=== PATIENT | female | born 1990 | race African-American/Black ===

== ENCOUNTER 2021-01-06 09:52 | Outpatient (CLI) | payer OTHER ==
--- NOTE | 2021-01-06 12:54 | MRI Report ---
PROCEDURE: Ankle LT W/O INDICATIONS: PAIN IN LEFT ANKLE TECHNIQUE: Noncontrast sagittal T1 spin echo and T2 fast spin echo with fat saturation, axial proton density fas t spin echo and T2 fast spin echo with fat saturation, coronal T1 spin echo and T2 fast spin echo wit h fat saturation through the ankle/hindfoot. COMPARISON: None. Findings: Bones: No evidence of fracture, infiltration, ischemia or contusion. MUSCLES: No evidence of muscular atrophy or edema. Anterior tibiofibular ligament: Intact. Posterior tibiofibular ligament: Intact. Calcaneofibular ligament: Intact. Talar dome: No significant abnormality. Anterior talofibular ligament: Intact. Posterior talofibular ligament: Intact. Deltoid ligament: Intact. Peroneal tendons: No evidence of tear or tenosynovitis. Tibialis posterior: No evidence of tear or tenosynovitis. Flexor digitorum: No evidence of tear or tenosynovitis. Flexor hallucis longus: No evidence of tear. Near circumferential fluid surrounds the tendon, which m ay reflect joint fluid versus tenosynovitis Sinus Tarsi: No mass or fibrosis. Achilles tendon: Intact. Joint effusion: Small tibiotalar joint effusion. Trace fluid in the retrocalcaneal bursa. Plantar fascia: No evidence of tear or inflammation. IMPRESSION: 1. Joint fluid versus tenosynovitis of the flexor hallucis longus. 2. Small tibiotalar joint effusion. 3. Trace fluid in the retrocalcaneal bursa. Reviewed by: Solomon Rush MD on 01/06/2021 12:53 PM PDT Approved by: Soloomn Rush MD on 01/06/2021 12:53 PM PDT Station ID: [id number]
== END 2021-01-06 09:53 | disposition home or self-care (01) ==
LOC: DI 09:52
PROVIDERS: ATTEND Orthopaedic Surgery
DX: M25.472 Effusion, left ankle (principal); M25.572 Pain in left ankle and joints of left foot

== ENCOUNTER 2021-04-23 08:49 | Outpatient (CLI) | payer OTHER ==
[2021-04-23] MEDS ORDERED: GADOBUTROL 7.5 MMOL/7.5 ML VIAL ONE (09:40)
--- NOTE | 2021-04-23 11:06 | MRI Report ---
PROCEDURE: Brain W/WO INDICATIONS: VERTIGO, MIGRAINES CONTRAST: IV CONTRAST: Gadavist ml: 7.5 TECHNIQUE: Noncontrast axial T1 spin echo, axial T2 fast spin echo, sagittal and axial FLAIR, coronal T2 fast sp in echo, axial gradient echo, axial diffusion and ADC through the brain. After the administration of contrast, axial and coronal T1 spin echo with fat saturation through the brain. COMPARISON: None. FINDINGS: Image quality: Excellent. CSF spaces: Basal cisterns are patent. No extra-axial fluid collections. Ventricles are normal in size and shape. Brain: No midline shift. No intracranial bleeds or masses. No abnormal intracranial enhancement. There is cerebral volume loss for age. There is periventricular white matter chronic small vessel is chemic change. The brainstem appears normal. Diffusion-weighted images demonstrate no acute ischemi c insults. No chronic ischemic insults. Normal intravascular flow voids are present. In this patient with this given history, scrutiny is given to the cerebellopontine angle cisterns and to the internal auditory canals. To the limits of this standard protocol study, no masses or abnorma l enhancement can be seen within these regions. Skull and face: Calvarial marrow is normal in signal. Orbits appear normal. Sinuses: Small maxillary sinus mucous retention cysts can be seen. Sinuses and mastoids otherwise ap pear clear. IMPRESSION: No imaging explanation is found for the patient's presenting symptoms. No masses or abnormal enhancement can be seen. Reviewed by: Pascual Gonzales MD on 04/23/2021 10:04 AM [facility] Approved by: Pascual Gonzales MD on 04/23/2021 10:04 AM [facility] Station ID: [id number]
[2021-04-28] MEDS: GADOBUTROL 7.5 MMOL/7.5 ML VIAL IVP ONE (09:34)
== END 2021-04-23 08:50 | disposition home or self-care (01) ==
LOC: DI 08:49
PROVIDERS: ATTEND Physician Assistant
DX: G43.009 Migraine without aura, not intractable, without status migrainosus (principal); R42 Dizziness and giddiness
CPT/HCPCS: 70553; A9585